=== PATIENT | female | born 1970 | race African-American/Black ===

== ENCOUNTER 2020-03-05 02:31 | Emergency (ER) | payer SELFPAY ==
[~2020-03-05] VITALS: Ht 172.7 cm; Wt 131.8 kg
[2020-03-05] MEDS ORDERED: IV NORMAL SALINE 1000ML BAG 1,000 ML IV ONE (03:00)
[2020-03-05] MEDS ORDERED: ONDANSETRON PF 4 MG/2 ML VIAL. IVP ONE (03:00)
--- NOTE | 2020-03-05 03:02 | PHYS DOC ---
Past Medical History Past Medical History: Cancer ("THROAT"), Diabetes-Type II Smoking Status: Current Some Day Smoker General Adult EDM: Chief Complaint: SHORTNESS OF BREATH HPI: HPI: Patient is a 49 year old female who arrives via EMS with a chief complaint of nausea vomiting. States that she was recently diagnosed with COVID-19 and has had some nasal congestion with a cough. Patient also has some shortness of breath. Patient denies any fever. Patient states that she began having nausea vomiting and arrives EMS for evaluation. 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 Patient appears grandiose and is extremely tangential in her thought process making history and physical and review of systems extremely difficult to ascertain the timeframe of her illness. Review of Systems: Review of Systems: Constitutional: Denies fever or chills. [] Eyes: Denies change in visual acuity. [] HENT: Complains of congestion Respiratory: Complains of cough and mild shortness of breath Cardiovascular: Denies chest pain or edema. [] GI: Complains abdominal pain with nausea vomiting : Denies dysuria. [] Musculoskeletal: Complains of myalgias Integument: Denies rash. [] Neurologic: Denies headache, focal weakness or sensory changes. [] Endocrine: Denies polyuria or polydipsia. [] Lymphatic: Denies swollen glands. [] Psychiatric: Denies depression or anxiety. [] Heart Score: Risk Factors: Risk Factors: DM, Current or recent (<one month) smoker, HTN, HLP, family history of CAD, obesity. Risk Scores: Score 0 - 3: 2.5% MACE over next 6 weeks - Discharge Home Score 4 - 6: 20.3% MACE over next 6 weeks - Admit for Clinical Observation Score 7 - 10: 72.7% MACE over next 6 weeks - Early Invasive Strategies Current Medications: Current Medications Medications (Trade) Dose Ordered Sig/Hilda Start Time Stop Time Status Last Admin Dose Admin Ondansetron HCl (Zofran) 4 mg 1X ONCE 03/05/20 03:00 03/05/20 03:01 UNV Sodium Chloride 1,000 ml @ 1,000 mls/hr 1X ONCE 03/05/20 03:00 03/05/20 03:59 UNV Physical Exam: PE: Constitutional: Well developed, well nourished, no acute distress, non-toxic appearance. [] HENT: Normocephalic, atraumatic, bilateral external ears normal, no trismus, nose normal. [] Eyes: PERRLA, EOMI, conjunctiva normal, no discharge. [] Neck: Normal range of motion, no tenderness, supple, no stridor. [] Cardiovascular:Heart rate regular rhythm, peripheral pulse intact cap refill is 2 seconds Lungs & Thorax: Bilateral breath sounds clear, no respiratory distress Abdomen: Soft with diffuse tenderness without guarding or rebound no masses, no pulsatile masses. [] Skin: Warm, dry, no erythema, no rash. [] Back: No tenderness, no CVA tenderness. [] Extremities: No tenderness, no cyanosis, no clubbing, ROM intact, no edema. [] Neurologic: Alert and oriented X 3, normal motor function, normal sensory function, no focal deficits noted. [] Psychologic: Bizarre affect, tangential thought process, intermittently explosive to nursing Current Patient Data: Labs: Laboratory Tests Test 03/05/20 03:25 White Blood Count 6.3 x10^3/uL Red Blood Count 4.09 x10^6/uL Hemoglobin 12.0 g/dL Hematocrit 36.0 % Mean Corpuscular Volume 88 fL Mean Corpuscular Hemoglobin 29 pg Mean Corpuscular Hemoglobin Concent 33 g/dL Red Cell Distribution Width 15.0 % Platelet Count 208 x10^3/uL Neutrophils (%) (Auto) 60 % Lymphocytes (%) (Auto) 32 % Monocytes (%) (Auto) 7 % Eosinophils (%) (Auto) 1 % Basophils (%) (Auto) 1 % Neutrophils # (Auto) 3.7 x10^3/uL Lymphocytes # (Auto) 2.0 x10^3/uL Monocytes # (Auto) 0.4 x10^3/uL Eosinophils # (Auto) 0.1 x10^3/uL Basophils # (Auto) 0.1 x10^3/uL Sodium Level 137 mmol/L Potassium Level 3.5 mmol/L Chloride Level 104 mmol/L Carbon Dioxide Level 25 mmol/L Anion Gap 8 Blood Urea Nitrogen 12 mg/dL Creatinine 1.0 mg/dL Estimated GFR (Cockcroft-Gault) 71.3 BUN/Creatinine Ratio 12 Glucose Level 482 mg/dL Calcium Level 8.3 mg/dL Magnesium Level 1.7 mg/dL Total Bilirubin 0.1 mg/dL Aspartate Amino Transf (AST/SGOT) 13 U/L Alanine Aminotransferase (ALT/SGPT) 10 U/L Alkaline Phosphatase 76 U/L Total Protein 6.6 g/dL Albumin 3.0 g/dL Albumin/Globulin Ratio 0.8 Lipase 127 U/L Serum Test, Qualitative Negative Current Medications Medications (Trade) Dose Ordered Sig/Hilda Route PRN Reason Start Time Stop Time Status Last Admin Dose Admin Ondansetron HCl (Zofran) 4 mg 1X ONCE IVP 03/05/20 03:00 03/05/20 03:01 DC 03/05/20 03:00 Sodium Chloride 1,000 ml @ 1,000 mls/hr 1X ONCE IV 03/05/20 03:00 03/05/20 03:59 DC 03/05/20 03:00 Iohexol (Omnipaque 300 Mg/ml) 75 ml 1X ONCE IV 03/05/20 04:30 03/05/20 04:31 DC 03/05/20 04:38 Info (CONTRAST GIVEN -- Rx MONITORING) 1 each PRN DAILY PRN MC SEE COMMENTS 03/05/20 04:30 03/07/20 04:29 Insulin Human Regular (HumuLIN R VIAL) 10 unit 1X ONCE IV 03/05/20 04:45 03/05/20 04:46 DC Potassium Chloride (Klor-Con) 40 meq 1X ONCE PO 03/05/20 04:45 03/05/20 04:46 DC Iohexol (Omnipaque 300 Mg/ml) 75 ml 1X ONCE IV 03/05/20 04:45 03/05/20 04:46 DC Info (CONTRAST GIVEN -- Rx MONITORING) 1 each PRN DAILY PRN MC SEE COMMENTS 03/05/20 04:45 03/07/20 04:44 Vital Signs: Vital Signs Date Time Temp Pulse Resp B/P (MAP) Pulse Ox O2 Delivery O2 Flow Rate FiO2 03/05/20 03:00 98.6 60 18 158/75 (102) 98 Room Air 98.6 EKG: EKG: EKG interpreted by me sinus bradycardia with a rate of 58 normal axis normal, nonspecific ST changes [] Radiology/Procedures: Radiology/Procedures: [][facility] [address] [address] IMAGING REPORT Signed PATIENT: MARQUIS CROOKCOUNT: [id number] : 1970 LOCATION: ER AGE: 49 SEX: F EXAM STATUS: REG ER ORD. PHYSICIAN: THANG VASQUEZ MD REASON: COVID, ABD PAIN, N/V, ALSO HX OF DIVERTICULITIS PROCEDURE: CT ABD PELV W/ IV CONTRST ONLY PQRS Compliance Statement: One or more of the following individualized dose reduction techniques were utilized for this examination: 1. Automated exposure control 2. Adjustment of the mA and/or kV according to patient size 3. Use of iterative reconstruction technique CT abdomen/pelvis with contrast 03/05/2020 4:10 AM INDICATION: Covid, abdominal pain, nausea and vomiting COMPARISON: None available TECHNIQUE: Multiple axial CT images of the abdomen and pelvis were obtained after the intravenous administration of 75 mL Omnipaque 300. Coronal and s agittal reformats are provided. FINDINGS: Minimal groundglass changes identified the right lung base. This may represent subsegmental atelectasis versus developing infiltrate. Heart size within normal limits. Evaluation of the upper abdomen is limited by patient positioning with arms across abdomen. Subtle hypoattenuation within the inferior right hepatic lobe measures 2.0 cm and could represent heterogeneous appearance of the hepatic parenchyma versus underlying hepatic lesion. Spleen, bilateral adrenal glands, pancreas and gallbladder are normal in appearance. Abdominal aorta is normal in course and caliber. No pathologically enlarged lymph nodes are identified in abdomen and pelvis. Mild to moderate colonic diverticulosis. No bowel obstruction or inflammation. Appendix is normal in appearance. There is a cyst in the medial interpolar left kidney measuring 1.8 cm. The kidneys enhance symmetrically. There is no suspicious renal mass. There is no hydronephrosis. There are no suspected calculi within the kidneys, ureters or urinary bladder. Urinary bladder is within normal limits given degree of distention. Uterus and adnexa are normal by CT. No suspicious osseous abnormality is identified. IMPRESSION: 1. No acute abnormality is identified in abdomen and pelvis. 2. Hypoattenuation noted within the inferior right hepatic lobe measuring 2.0 cm. This could represent underlying hepatic lesion. Further characterization with abdominal MRI with and without contrast could be of benefit. 3. Diverticulosis without adjacent inflammatory changes. 4. Faint groundglass changes identified at the right lung base. Consideration may be given for subsegmental atelectasis versus developing infiltrate. Electronically signed by: Coreen Garza MD (03/05/2020 4:47 AM) [facility] DICTATED and SIGNED BY: COREEN GARZA MD DATE: 03/05/[id number] [facility] [address] [place] [address] IMAGING REPORT Signed PATIENT: MARQUIS CROOK MACCOUNT: [id number] : 1970 LOCATION: ER AGE: 49 SEX: F EXAM STATUS: REG ER ORD. PHYSICIAN: THANG VASQUEZ MD REASON: COVID, SOA, ER#11 PROCEDURE: PORTABLE CHEST 1V XR CHEST 1V 03/05/2020 3:46 AM INDICATION: Covid, shortness of air COMPARISON: None available TECHNIQUE: Portable frontal view of the chest is provided. FINDINGS: The cardiomediastinal silhouette is within normal limits. Lungs are clear. There are no significant pleural effusions. There is no pulmonary vascular congestion. No pneumothorax. No suspicious osseous abnormality. IMPRESSION: There is no acute cardiopulmonary process. Electronically signed by: Coreen Garza MD (03/05/2020 3:58 AM) [facility] DICTATED and SIGNED BY: COREEN GARZA MD DATE: 03/05/20 [id number] Course & Med Decision Making: Course & Med Decision Making Pertinent Labs and Imaging studies reviewed. (See chart for details) [] 49-year-old female arrives via EMS with a chief complaint nausea vomiting. Patient recently got out of [facility] for COVID-19. Patient had abdominal pain with vomiting and history of diverticulosis and a CT was done to rule out diverticulitis. CT is negative for diverticulitis. Abdominal exam is soft and nonsurgical. Chest x-ray is negative. CT of the abdomen and pelvis revealed some mild groundglass infiltrate consistent with COVID-19. Pat ient reassessed at 5:03 AM and resting comfortably. Patient has no respiratory distress. Patient is found to have hyperglycemic and insulin has been ordered. Patient also has a potassium of 3.5 this will be replaced. Patient will be stable for discharge to the [facility]. Patient given prescription for Zofran. Abdirizak Disclaimer: Abdirizak Disclaimer: This electronic medical record was generated, in whole or in part, using a voice recognition dictation system. Departure Departure Impression: Primary Impression: COVID-19 Additional Impressions: Vomiting Abdominal pain Hyperglycemia Disposition: 01 DC HOME SELF CARE/HOMELESS Condition: STABLE Referrals: PCP [facility] [address] [place] [address] [facility] [address] [place] [address] [facility] [address] Patient Instructions: Hyperglycemia, Nausea and Vomiting Additional Instructions: You have been tested for or diagnosed with COVID-19. It is an infection caused by a new type of coronavirus. COVID-19 will cause cold-like or mild flu symptoms in most. It can cause more severe symptoms like problems breathing in some. There is no treatment for COVID-19. The body will clear the infection over time. Self-care will help to ease discomfort. Steps to Take: Self-Care Rest as needed. Healthy habits may help you feel better. Steps include: Choose healthy foods including fruits and vegetables. Drink water throughout the day. Get plenty of sleep each night. If you smoke, try to quit. It may ease breathing. Avoid alcohol. Keep Others Healthy The virus can spread to others. Droplets are released every time you sneeze or cough. The droplets can get into the mouth, nose, or eyes of people near you and lead to infection. To lower the chances of spreading COVID-19 to others: Stay at home until your doctor has said it is safe to leave. If you tested positive this will mean staying isolated until both of the following are true: At least 7 days have passed since the start of illness. You are free of fever for at least 72 hours without the use of medicine. During this time: - Avoid public areas, events, or transportation. Do not return to work or school until your doctor has said it is safe to do so. - Call ahead if you need to go to a medical center. Let them know you may have COVID-19. It will help them guide you where to go. They may also ask you to wear a facemask when you come to the office. - If you call for emergency medical services, let them know you may have COVID- 19. While at home: - Try to avoid close contact with others. Stay about 6 feet away. - If possible, spend most of your time in a separate room from others. - Use a face mask if you will be in close contact with others such as sharing a room or vehicle. - Have someone wipe down common surfaces in the home. Use household sheet rock applicator every day on areas like doorknobs, counters, or sinks. - Cough or sneeze into a tissue. Throw the tissue away right after use. If a tissue is not available, cough or sneeze into your elbow. - Wash your hands often. Wash them after sneezing or coughing. Use soap and water and wash for at least 20 seconds. Alcohol based hand heavy cleaner can be used if soap and water is not available. - Do not prepare food for others. Avoid sharing personal items like forks, spoons, or toothbrushes. - Avoid close contact with pets while you are sick. There is no evidence of the virus passing to pets. This is a safety step until more is known about this virus. Isolation can be frustrating. Social interaction can help. Keep in touch with friends and family through phone and tech options. You can still interact with others in your home, just keep a safe distance of about 6 feet. Follow-up: Your doctors office will check in with you to see if there are any changes in your health. You may be asked to keep track of symptoms to share with them. They will also let you know when you are clear to be in public again. Problems to Look Out For: Contact your doctor if your recovery is not going as you expect. Get emergency care if you have problems such as: - Trouble breathing - Nonstop chest pain or pressure - Changes in awareness, confusion, or problems waking - Lips or face have bluish color - Worsening of symptoms If you think you have an emergency, call for emergency medical services right away. As taken from [facility] EMERGENCY DEPARTMENT GENERAL DISCHARGE INSTRUCTIONS THANK YOU for coming to [facility] Emergency Department (ED) today and trusting us with your care. We trust that you had a positive experience in our Emergency Department. If you wish to speak to the department Management you can contact the bit and shank department supervisor at . YOUR FOLLOW UP INSTRUCTIONS ARE FOLLOWS: Do you have a private doctor? If you do not have a private doctor, please ask for a resource list of physicians or clinics that may be able to assist you with follow up c are. The Emergency Physician has interpreted your x-rays. The X-ray specialist will also review them. If there is a change in the findings you will be notified in 48 hours when at all possible. A lab test or lab culture may have been done, your results will be reviewed and you will be notified if you need a change in treatment. ADDITIONAL INSTRUCTIONS AND INFORMATION Your care today has been supervised by a physician who is specially trained in emergency care. Many problems require more than one evaluation for a complete diagnosis and treatment. We recommend that you schedule your follow up appointment as recommended to ensure complete treatment of your illness or injury. If you are unable to obtain follow up care and continue to have a problem, or if your condition worsens we recommend that you return to the ED. We are not able to safely determine your condition over the phone nor are we able to give sound medical advice over the phone. For these safety reasons, if you call for medical advice we will ask you to come to the ED for further evaluation If you have any questions regarding these discharge instructions please call the ED at . SAFETY INFORMATION In the interest of safety, wellness, and injury prevention; we encourage you to wear your seatbelt, if you smoke; quit smoking, and we encourage your family to use protective helmet for bicycling and other sporting events that present an increased risk for head injury. IF YOUR SYMPTOMS WORSEN OR NEW SYMPTOMS DEVELOP, OR YOU HAVE CONCERNS ABOUT YOUR CONDITION; OR IF YOUR CONDITION WORSENS WHILE YOU ARE WAITING FOR YOUR FOLLOW UP APPOINTMENT; EITHER CONTACT YOUR PRIMARY CARE DOCTOR, THE PHYSICIAN WHOSE NAME AND NUMBER YOU WERE GIVEN, OR RETURN TO THE ED IMMEDIATELY. Scripts Ondansetron Hcl (ZOFRAN) 4 Mg Tablet 1 TAB PO Q6HRS, #12 TAB Prov: THANG VASQUEZ MD 03/05/20 THANG VASQUEZ MD Mar 05, 2020 03:02
[2020-03-05 03:34] LABS: BASO # 0.1 x10^3/uL (0.0-0.2); BASO % 1 % (0-3); EOS # 0.1 x10^3/uL (0.0-0.7); EOS % 1 % (0-3); LYMPH % 32 % (24-48); MEAN CORPUSCULAR HEMOGLOBIN 29 pg (25-35); MEAN CORPUSCULAR HGB CONC 33 g/dL (31-37); MEAN CORPUSCULAR VOLUME 88 fL (79-100); MONO # 0.4 x10^3/uL (0.0-1.1); MONO % 7 % (0-9); NEUT # 3.7 x10^3/uL (1.8-7.7); NEUT % 60 % (31-73); PLATELET COUNT 208 x10^3/uL (140-400); RED BLOOD COUNT 4.09 x10^6/uL (3.50-5.40); WHITE BLOOD COUNT 6.3 x10^3/uL (4.0-11.0)
[2020-03-05 03:43] LABS: CALCIUM 8.3 mg/dL (8.5-10.1); GFR 71.3; POTASSIUM 3.5 mmol/L (3.5-5.1)
[2020-03-05 03:44] LABS: PREG TEST PT QUAL NEGATIVE (NEG)
[2020-03-05 03:49] LABS: ALBUMIN/GLOBULIN RATIO 0.8 (1.0-1.7); MAGNESIUM 1.7 mg/dL (1.8-2.4); TOTAL BILIRUBIN 0.1 mg/dL (0.2-1.0); TOTAL PROTEIN 6.6 g/dL (6.4-8.2)
--- NOTE | 2020-03-05 04:00 | RAD ---
XR CHEST 1V 03/05/2020 3:46 AM INDICATION: Covid, shortness of air COMPARISON: None available TECHNIQUE: Portable frontal view of the chest is provided. FINDINGS: The cardiomediastinal silhouette is within normal limits. Lungs are clear. There are no significant pleural effusions. There is no pulmonary vascular congestion. No pneumothora x. No suspicious osseous abnormality. IMPRESSION: There is no acute cardiopulmonary process. Electronically signed by: Laverne Garza MD (03/05/2020 3:58 AM) [facility]
[2020-03-05] MEDS ORDERED: IOHEXOL 300 MG/ML 100ML VIAL. IV ONE ×2 (04:30→04:45)
[2020-03-05] MEDS ORDERED: CONTRAST GIVEN. MC PRN ×2 (04:30→04:45)
[2020-03-05] MEDS ORDERED: POTASSIUM CHLORIDE 20 MEQ TABLET.ER. PO ONE (04:45)
[2020-03-05] MEDS ORDERED: INSULIN REGULAR 100 UNIT/ML 3ML VIAL. IV ONE (04:45)
--- NOTE | 2020-03-05 04:49 | RAD ---
PQRS Compliance Statement: One or more of the following individualized dose reduction techniques were utilized for this examinat ion: 1. Automated exposure control 2. Adjustment of the mA and/or kV according to patient size 3. Use of iterative reconstruction technique CT abdomen/pelvis with contrast 03/05/2020 4:10 AM INDICATION: Covid, abdominal pain, nausea and vomiting COMPARISON: None available TECHNIQUE: Multiple axial CT images of the abdomen and pelvis were obtained after the intravenous adm inistration of 75 mL Omnipaque 300. Coronal and sagittal reformats are provided. FINDINGS: Minimal groundglass changes identified the right lung base. This may represent subsegmental atelectas is versus developing infiltrate. Heart size within normal limits. Evaluation of the upper abdomen is limited by patient positioning with arms across abdomen. Subtle hypoattenuation within the inferior r ight hepatic lobe measures 2.0 cm and could represent heterogeneous appearance of the hepatic parench yma versus underlying hepatic lesion. Spleen, bilateral adrenal glands, pancreas and gallbladder are normal in appearance. Abdominal aorta is normal in course and caliber. No pathologically enlarged lym ph nodes are identified in abdomen and pelvis. Mild to moderate colonic diverticulosis. No bowel obst ruction or inflammation. Appendix is normal in appearance. There is a cyst in the medial interpolar l eft kidney measuring 1.8 cm. The kidneys enhance symmetrically. There is no suspicious renal mass. Th ere is no hydronephrosis. There are no suspected calculi within the kidneys, ureters or urinary bladd er. Urinary bladder is within normal limits given degree of distention. Uterus and adnexa are normal by CT. No suspicious osseous abnormality is identified. IMPRESSION: 1. No acute abnormality is identified in abdomen and pelvis. 2. Hypoattenuation noted within the inferior right hepatic lobe measuring 2.0 cm. This could represen t underlying hepatic lesion. Further characterization with abdominal MRI with and without contrast co uld be of benefit. 3. Diverticulosis without adjacent inflammatory changes. 4. Faint groundglass changes identified at the right lung base. Consideration may be given for subseg mental atelectasis versus developing infiltrate. Electronically signed by: Laverne Garza MD (03/05/2020 4:47 AM) [facility]
[2020-03-05] MEDS ORDERED: ONDA4TAB7 PO (05:08)
[2020-03-05 05:14] VITALS: BP 124/64
== END 2020-03-05 05:21 | disposition home or self-care (01) ==
LOC: ER 02:31
DX: U07.1 COVID-19 (principal); R11.2 Nausea with vomiting, unspecified; R10.9 Unspecified abdominal pain; R09.81 Nasal congestion; R05 Cough; E11.65 Type 2 diabetes mellitus with hyperglycemia; Z85.9 Personal history of malignant neoplasm, unspecified; F17.200 Nicotine dependence, unspecified, uncomplicated
CPT/HCPCS: 36415; 71045; 74177; 80053; 83690; 83735; 84703; 85025; 96361; 96374; 96375; 99285; J1815; J2405; J7030; Q9967

== ENCOUNTER 2020-03-10 11:37 | Emergency (ER) | payer SELFPAY ==
[~2020-03-10] VITALS: Ht 165.1 cm; Wt 127.0 kg
[~2020-03-10 11:37] MED LIST: ONDA4TAB7 PO
[2020-03-10 11:48] VITALS: BP 167/83
[2020-03-10] MEDS ORDERED: INSULIN LISPRO 300 UNITS/3 ML VIAL. SQ ONE (13:00)
--- NOTE | 2020-03-10 13:14 | RAD ---
EXAM: Head and maxillofacial bone CT without contrast. HISTORY: Trauma. Headache. TECHNIQUE: Computed tomographic images of the head and maxillofacial bones were obtained without cont rast. *One or more of the following individualized dose reduction techniques were utilized for this examina tion: 1. Automated exposure control. 2. Adjustment of the mA and/or kV according to patient size. 3. Use of iterative reconstruction technique. COMPARISON: None. FINDINGS: There is no acute intracranial hemorrhage. There is no mass effect or midline shift. There is no hydrocephalus. The cronin-white matter differentiation pattern is intact. The mastoid air cells a re clear. The temporal minimal joints are intact. There is no suspicious calvarial lesion. There are multiple missing and partially missing teeth. There are dental caries. There is lucency surrounding t he roots of the mandibular incisors, suggesting small periapical abscesses. The orbits are unremarkable. There is mild right maxillary sinus mucosal thickening and attenuation o f the right ostiomeatal unit. There is no sinus opacification or air-fluid level. There is minimal ri ghtward nasal septal deviation. There is mild degenerative change involving the visualized cervical s pine. There is no acute osseous finding. IMPRESSION: 1. No acute intracranial finding or evidence of acute maxillofacial bone trauma. 2. Left mandibular incisor periapical lucencies and multiple missing and partially missing teeth and suspected dental caries. Correlate with dental exam findings. Electronically signed by: Romi Chamorro MD (03/10/2020 1:12 PM) [facility]
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
== END 2020-03-10 13:45 | disposition home or self-care (01) ==
LOC: ER 11:37
DX: G89.11 Acute pain due to trauma (principal); M54.2 Cervicalgia; R51.9 Headache, unspecified; H57.10 Ocular pain, unspecified eye; E11.9 Type 2 diabetes mellitus without complications; Z87.891 Personal history of nicotine dependence; Z85.9 Personal history of malignant neoplasm, unspecified; Y08.89XA Assault by other specified means, initial encounter; Y93.89 Activity, other specified; Y92.89 Other specified places as the place of occurrence of the external cause; Y99.8 Other external cause status
CPT/HCPCS: 70450; 70486; 82962; 96372; 99285; J1815